=== PATIENT | male | born 1965 | race Caucasian/White ===

== ENCOUNTER 2016-10-22 08:06 | Emergency (ER) | payer OTHER ==
[~2016-10-22] VITALS: Ht 185.4 cm; Wt 91.2 kg
--- NOTE | ~2016-10-22 | CR142 ---
[facility] A Service of [facility] [place] RADIOLOGY TEXT RESULTS PATIENT: ALDO MOSHER LOCATION: [facility] : 65 UNIT #: [id number] AGE: [address]: Darlene Fernandes SEX: M ORDER DR: [id number] [facility] [address] [place], [place] [address] [id number] E MR#: [id number] Acc #: [id number] NAME: ALDO MOSHER : 1965 SEX: M STUDY DATE/TIME: 10/22/2016 9:02 UNIT: [facility] ROOM: STUDY DESCRIPTION: CR Hand Min 3 Views Rt Attending Physician: Darlene Fernandes P.A.-C. Ordering Physician: Darlene Fernandes P.A.-C. Primary Care Physician: No Primary Care Physician MEDICAL IMAGING REPORT This report is preliminary unless electronic signature is present EXAM Right hand 3 views INDICATION Right hand pain after injuring it last night. COMPARISON 12/21/2011 FINDINGS There is a fracture involving the mid/distal portion of the fifth metacarpal with associated soft tissue swelling. There is mild dorsal angulation of the fracture. No dislocation. No other fractures. IMPRESSION Fracture of the fifth metacarpal. Dictated by... Merrill Kelly M.D. THIS IS AN ELECTRONICALLY VERIFIED REPORT Merrill Kelly M.D. at 10/24/2016 7:36 AM FERNANDO/winter TD: 10/23/2016 11:45 JOB #: [id number] MEDICAL IMAGING REPORT Page 1 of 1 COPY
[~2016-10-22 08:06] MED LIST: ASPIRIN PO; ASPIRIN81 M1 PO; BACTRIM DS TABL1 TA1 PO; DICLOFENAC; FLEXERIL10 M1 PO; GENTAK3.5 GM OP; KEFLEX500 MG PO; LORTAB 5/500 TA1 TA1 PO; MEDROL4 MG/DOSE- PO; NICOTINE PATCH1 BOX TD; NICOTINE TRANSD14 MG EXT; NO MEDICATIONS; PRILOSEC PO; SIMVASTATIN40 MG PO; TYLENOL325 M1 PO; VICODIN 5/500 T1 TAB PO; VICODIN PO; VOLTAREN75 MG PO
== END 2016-10-22 10:14 | disposition home or self-care (01) ==
LOC: CED 08:06
DX: S62.326A Displaced fracture of shaft of fifth metacarpal bone, right hand, initial encounter for closed fracture (principal); S66.326A Laceration of extensor muscle, fascia and tendon of right little finger at wrist and hand level, initial encounter; R03.0 Elevated blood-pressure reading, without diagnosis of hypertension; F17.210 Nicotine dependence, cigarettes, uncomplicated; I25.2 Old myocardial infarction; Z86.73 Personal history of transient ischemic attack (TIA), and cerebral infarction without residual deficits; W22.8XXA Striking against or struck by other objects, initial encounter; Y92.69 Other specified industrial and construction area as the place of occurrence of the external cause; Y93.89 Activity, other specified; Y99.0 Civilian activity done for income or pay
CPT/HCPCS: 29125; 73130; 99283